=== PATIENT | female | born 1975 | race Caucasian/White ===

== ENCOUNTER → 2016-06-25 | Day surgery (SDC) | payer BC, OTHER ==
[2016-06-22 09:24] VITALS: Ht 167.6 cm; Wt 131.8 kg
[~2016-06-25] VITALS: Ht 167.6 cm; Wt 131.8 kg
[~2016-06-25] MED LIST: ACET-24 PO; AMT50 PO; ASCA500 PO; ASPEC325 PO; ATROPINE SULFATE 0.1 MG/ML 5ML SYR IV PRN; CALC600T9 PO; EpHEDrine SULFATE INJ 50 MG/ML AMP IV PRN; FENTANYL CITRATE INJ 50 MCG/1 ML 2 ML VIAL ONE; FERR325T5 PO; FLM4 PO; FRRG PO; HYDR-4079 PO; LIDOCAINE HCL 2% 2 ML VIAL (20MG/ML) ONE; LISI-788 PO; MAGN400T6 PO; METF750T PO; METO50TA7 PO; MOME200A INH; MORP-157 PO; OMEP20TA PO; POTA20TA16 PO; PROPOFOL IV EMULSION 10 MG/ML 20 ML VIAL IV ONE; ROPI0.25 PO; RXC5 PO; SUMATRIPTAN PO; TRMO2580 TOP; VENL150T33 PO
--- NOTE | 2016-06-25 08:24 | Endo History and Physical ---
History & Physical Date of Service: Jun 25, 2016. Chief Complaint: Anemia Referring Physician: Yamileth PARSONS History of Present Illness Patient referred for evaluation of iron deficiency anemia. No symptoms, no dysphagia, no hematochezia. Past Surgical History Hx Cardiac Surgery: No Hx Internal Defibrillator: No Hx Pacemaker: No Hx Abdominal Surgery: Yes (, BARIATRIC SURGERY) Hx of Implantable Prosthesis: No Hx Post-Op Nausea and Vomiting: No Hx Cancer Surgery: No Hx Thoracic Surgery: No Hx Orthopedic: No Hx Urinary Tract Surgery: No Family History None Social History Smoking Status: Current Every Day Smoker Hx Substance Use: No Hx Alcohol Use: Yes (OCCASIONAL) Allergies Coded Allergies: No Known Allergies (Verified , 06/25/16) Current Medications Reported Home Medications Medications Dose Route/Sig Max Daily Dose Days Date Category Dose Instructions [place] 10MG/325MG (Acetaminophen/Hydrocodone Bitart) Tab 1 Tab PO TID PRN 30 06/25/16 Reported PRN PAIN Vitamin C (Ascorbic Acid) 500 Mg Tab 1 Tab PO QAM 06/22/16 Reported Calcium + D (Calcium Carbonate-Vitamin D) 1 Tab Tab 1 Tab PO BID 06/22/16 Reported Ferrous Sulfate 325 Mg Tab 1 Tab PO BID 06/22/16 Reported Mag-Ox (Magnesium Oxide) 400 Mg Tab 400 Mg PO QAM 06/22/16 Reported Klor-Con (Potassium Chloride) 20 Meq Tabcr 20 Meq PO QAM 06/22/16 Reported Requip (Ropinirole HCl) 0.25 Mg Tab 0.25 Mg PO HS 06/22/16 Reported Elavil (Amitriptyline HCl) 50 Mg Tab 50 Mg PO HS 06/22/16 Reported Dulera 200/5 Mcg (Mometasone Furoate-Formoterol) 1 Aer Aer 1 Puff INH BID 06/22/16 Reported Zestoretic 20MG/25MG (HCTZ/Lisinopril) Tab 1 Tab PO QAM 06/22/16 Reported Toprol-Xl (Metoprolol Succinate) 50 Mg Tabcr 50 Mg PO QAM 06/22/16 Reported Glucophage Er (Metformin Hcl) 750 Mg Tab 750 Mg PO BID 06/22/16 Reported Tamsulosin HCl 0.4 Mg Cap 1 Cap PO QAM 06/22/16 Reported Venlafaxine Hcl Er (Venlafaxine Hcl) 150 Mg Tab 2 Tabs PO QAM 06/22/16 Reported Omeprazole 20 Mg Tab 40 Mg PO QAM 06/22/16 Reported Vital Signs Weight (Kilograms): 131.82 Height (Feet): 5 Height (Inches): 6 Date Time Temp Pulse Resp B/P Pulse Ox O2 Delivery O2 Flow Rate FiO2 06/25/16 08:16 36.9 85 22 165/94 95 Room Air Physical Exam General Appearance: no apparent distress Respiratory/Chest: Auscultation: breath sounds normal Cardiovascular: Heart Auscultation: RRR Abdomen: Inspection & Palpation: soft Assessment and Plan EGD and colonoscopy today, risks are bleeding, infection, perforation, pain, and missed polyps.
--- NOTE | 2016-06-25 09:20 | Discharge Instructions ---
Endoscopy Patient Instructions Date / Procedure(s) Performed Jun 25, 2016. Colonoscopy, EGD Allergy Information Coded Allergies: No Known Allergies (Verified , 06/25/16) Discharge Date / Findings Jun 25, 2016. Hemorrhoids Prior gastric bypass Medication Instructions Stopped Medication(s): Patient was told to stop metformin "and a few others" but she doesn't remember which ones. Reported Home Medications Medications Dose Route/Sig Max Daily Dose Days Date Category Dose Instructions [place] 10MG/325MG (Acetaminophen/Hydrocodone Bitart) Tab 1 Tab PO TID PRN 30 06/25/16 Reported PRN PAIN Vitamin C (Ascorbic Acid) 500 Mg Tab 1 Tab PO QAM 06/22/16 Reported Calcium + D (Calcium Carbonate-Vitamin D) 1 Tab Tab 1 Tab PO BID 06/22/16 Reported Ferrous Sulfate 325 Mg Tab 1 Tab PO BID 06/22/16 Reported Mag-Ox (Magnesium Oxide) 400 Mg Tab 400 Mg PO QAM 06/22/16 Reported Klor-Con (Potassium Chloride) 20 Meq Tabcr 20 Meq PO QAM 06/22/16 Reported Requip (Ropinirole HCl) 0.25 Mg Tab 0.25 Mg PO HS 06/22/16 Reported Elavil (Amitriptyline HCl) 50 Mg Tab 50 Mg PO HS 06/22/16 Reported Dulera 200/5 Mcg (Mometasone Furoate-Formoterol) 1 Aer Aer 1 Puff INH BID 06/22/16 Reported Zestoretic 20MG/25MG (HCTZ/Lisinopril) Tab 1 Tab PO QAM 06/22/16 Reported Toprol-Xl (Metoprolol Succinate) 50 Mg Tabcr 50 Mg PO QAM 06/22/16 Reported Glucophage Er (Metformin Hcl) 750 Mg Tab 750 Mg PO BID 06/22/16 Reported Tamsulosin HCl 0.4 Mg Cap 1 Cap PO QAM 06/22/16 Reported Venlafaxine Hcl Er (Venlafaxine Hcl) 150 Mg Tab 2 Tabs PO QAM 06/22/16 Reported Omeprazole 20 Mg Tab 40 Mg PO QAM 06/22/16 Reported Provider Instructions Activity Restrictions - No exercising or heavy lifting for 24 hours. - Do not drink alcohol the day of the procedure. - Do not drive a car or operate machinery until the day after the procedure. - Do not make any important decisions or sign important papers in 24 hours after the procedure. Following Day: - Return to full activity which may include returning to work/school. Diet Start your diet with liquids and light foods (jello, soup, juice, toast). Then eat your usual diet if not nauseated. Treatment For Common After Affects For mild abdominal pain, bloating, or excessive gas: - Rest - Eat lightly - Lie on right side Follow-Up Information Iron deficiency most likely related to prior gastric bypass -- consider addition of vitamin C to her iron supplement (perhaps IV iron) Consider a CT of the abdomen Anesthesia Information What You Should Know You have had a procedure that required some medicine to reduce anxiety and discomfort. This treatment is called moderate sedation. After receiving the treatment, you may be sleepy, but you will be able to breathe on your own. The effects of the treatment may last for several hours. Follow these instructions along with Activity/Diet recommendations noted above: * Do NOT do anything where dizziness or clumsiness would be dangerous. * Rest quietly at home today, then you can be up and about tomorrow. * Have a responsible person stay with you the rest of today. * You may have had an I.V. today. If so, you may take the dressing off later today. Recommendations Call your doctor if: * Trouble breathing * Continuous vomiting for more than 24 hours * Temperature above 101 degrees * Severe abdominal pain or bloating * Pain not relieved by pain medicine ordered * There is increased drainage or redness from any incision * A large amount of rectal bleeding greater than 2-3 tablespoons. (If you had a polyp/s removed or have hemorrhoids, a small amount of blood - from the rectum is to be expected.) * You have any unanswered questions or concerns. IN THE EVENT OF A SERIOUS EMERGENCY, GO TO THE NEAREST EMERGENCY ROOM Your discharge instructions were prepared by provider Evans Mccloud. Patient Instructions Signature Page Yin Shearer Patient (or Guardian) Signature/Date: I have read and understand the instructions given to me by my caregivers. Caregiver/RN/Doctor Signature/Date: The above-named patient and/or guardian has received patient instructions on this date. + Original Patient Signature Page (only) stays with chart. Please make copy for patient.
--- NOTE | 2016-06-25 09:26 | GI REPORT ---
Procedure Date: 06/25/2016 7:57 AM Procedure: Upper GI endoscopy Indications: Iron deficiency anemia Medicines: Monitored Anesthesia Care Complications: No immediate complications. Estimated blood loss: Minimal. Estimated Blood Loss: Estimated blood loss was minimal. Estimated blood loss was minimal. Procedure: Pre-Anesthesia Assessment: - Prior to the procedure, a History and Physical was performed, and patient medications, allergies and sensitivities were reviewed. The patient's tolerance of previous anesthesia was reviewed. - The risks and benefits of the procedure and the sedation options and risks were discussed with the patient. All questions were answered and informed consent was obtained. - Patient identification and proposed procedure were verified prior to the procedure by the physician, the nurse and the utility engineer. The procedure was verified in the procedure room. - Pre-procedure physical examination revealed no contraindications to sedation. - ASA Grade Assessment: IV - A patient with severe systemic disease that is a constant threat to life. - After reviewing the risks and benefits, the patient was deemed in satisfactory condition to undergo the procedure. - The anesthesia plan was to use monitored anesthesia care (MAC). - Immediately prior to administration of medications, the patient was re-assessed for adequacy to receive sedatives. - The heart rate, respiratory rate, oxygen saturations, blood pressure, adequacy of pulmonary ventilation, and response to care were monitored throughout the procedure. - The physical status of the patient was re-assessed after the procedure. After obtaining informed consent, the endoscope was passed under direct vision. Throughout the procedure, the patient's blood pressure, pulse, and oxygen saturations were monitored continuously. The Scope was introduced through the mouth, and advanced to the jejunum. The upper GI endoscopy was accomplished without difficulty. The patient tolerated the procedure well. Findings: The examined esophagus was normal. Evidence of a gastric bypass was found. A gastric pouch with a small size was found. The staple line appeared intact. The gastrojejunal anastomosis was characterized by healthy appearing mucosa. This was traversed. The dsnlu-ds-iizklfq limb was characterized by healthy appearing mucosa. The dyqihzvy-hk-ysfryka limb was not examined as it could not be reached. Biopsies were taken with a cold forceps for histology. Estimated blood loss was minimal. Impression: - Normal esophagus. - Gastric bypass with a small-sized pouch and intact staple line. Gastrojejunal anastomosis characterized by healthy appearing mucosa. Biopsied. Recommendation: - Perform a colonoscopy today. - Await pathology results. - Iron deficiency most likely related to prior gastric bypass (consider addition of Vitamin C, if ineffective perhaps patient may need IV iron) - Observe patient's clinical course. Evans Mccloud D.O. Evans Mccloud, 06/25/2016 9:25:40 AM This report has been signed electronically. Note Initiated On: 06/25/2016 7:57 AM I attest to the content of the Intraoperative Record and orders documented therein, exceptions below
--- NOTE | 2016-06-25 09:28 | GI REPORT ---
Procedure Date: 06/25/2016 8:52 AM Procedure: Colonoscopy Indications: Iron deficiency anemia Medicines: Monitored Anesthesia Care Complications: No immediate complications. Estimated blood loss: Minimal. Estimated Blood Loss: Estimated blood loss was minimal. Procedure: Pre-Anesthesia Assessment: - Prior to the procedure, a History and Physical was performed, and patient medications, allergies and sensitivities were reviewed. The patient's tolerance of previous anesthesia was reviewed. - The risks and benefits of the procedure and the sedation options and risks were discussed with the patient. All questions were answered and informed consent was obtained. - Patient identification and proposed procedure were verified prior to the procedure by the physician, the nurse and the blanker press operator. The procedure was verified in the procedure room. - Pre-procedure physical examination revealed no contraindications to sedation. - ASA Grade Assessment: IV - A patient with severe systemic disease that is a constant threat to life. - After reviewing the risks and benefits, the patient was deemed in satisfactory condition to undergo the procedure. - The anesthesia plan was to use monitored anesthesia care (MAC). - Immediately prior to administration of medications, the patient was re-assessed for adequacy to receive sedatives. - The heart rate, respiratory rate, oxygen saturations, blood pressure, adequacy of pulmonary ventilation, and response to care were monitored throughout the procedure. - The physical status of the patient was re-assessed after the procedure. After I obtained informed consent, the scope was passed under direct vision. Throughout the procedure, the patient's blood pressure, pulse, and oxygen saturations were monitored continuously. The scope was introduced through the anus and advanced to the cecum, identified by appendiceal orifice and ileocecal valve. The colonoscopy was performed without difficulty. The patient tolerated the procedure well. The quality of the bowel preparation was adequate to identify polyps 6 mm and larger in size. Findings: The perianal and digital rectal examinations were normal. Pertinent negatives include normal sphincter tone. Internal hemorrhoids were found during retroflexion. The hemorrhoids were mild. The exam was otherwise without abnormality. Impression: - Internal hemorrhoids. - The examination was otherwise normal. Recommendation: - Discharge patient to home (ambulatory). - Advance diet as tolerated today. - Repeat colonoscopy for screening purposes at age 49 (patient will need a 2 day bowel preparation). - Return to nurse practitioner as previously scheduled. - Please see EGD report for recomendations. Evans Mccloud D.O. Evans Mccloud, 06/25/2016 9:27:59 AM This report has been signed electronically. Note Initiated On: 06/25/2016 8:52 AM I attest to the content of the Intraoperative Record and orders documented therein, exceptions below
--- NOTE | 2016-06-25 09:31 | Anesthesiology Progress Note ---
Anesthesia Post Op Note Date & Time Jun 25, 2016 at 09:30 Vital Signs Pain Intensity: 0 Vital Signs Past 12 Hours Date Time Temp Pulse Resp B/P Pulse Ox O2 Delivery O2 Flow Rate FiO2 06/25/16 09:13 92 20 138/90 95 Room Air 06/25/16 08:16 36.9 85 22 165/94 95 Room Air Notes Mental Status: alert / awake / arousable, participated in evaluation Pt Amnestic to Procedure: Yes Nausea / Vomiting: adequately controlled Pain: adequately controlled Airway Patency, RR, SpO2: stable & adequate BP & HR: stable & adequate Hydration State: stable & adequate Anesthetic Complications: no major complications apparent
[2016-06-25 09:43] VITALS: BP 124/90; PULSE 84; O2SAT 96
== END | disposition home or self-care (01) ==
LOC: C.GI 07:38
PROVIDERS: ATTEND Internal Medicine Gastroenterology
DX: D50.9 Iron deficiency anemia, unspecified (principal); K64.8 Other hemorrhoids; K31.89 Other diseases of stomach and duodenum; Z98.890 Other specified postprocedural states; F17.210 Nicotine dependence, cigarettes, uncomplicated

== ENCOUNTER 2016-10-22 06:19 | Inpatient (IN) | payer BC ==
[2016-09-28 09:07] VITALS: BMI 45.0
--- NOTE | 2016-09-28 09:39 | PAT Medication Instructions ---
Service Date Sep 28, 2016. Current Home Medication List Amitriptyline Hcl (Elavil), 75 MG PO HS Ascorbic Acid (Vitamin C), 1 TAB PO QAM Calcium Carbonate-Vitamin D (Calcium + D), 2 TAB PO QAM Hydrocodone/Acetaminophen 10MG/325MG ([place] 10MG/325MG), 1 TAB PO TID PRN for Pain Lisinopril/Hctz (Zestoretic 20MG/25MG), 1 TAB PO QAM Magnesium Oxide (Mag-Ox), 400 MG PO QAM Metformin Hcl (Glucophage Er), 750 MG PO BID Metoprolol Succ (Toprol Xl) (Toprol-Xl), 50 MG PO QAM Mometasone Furoate-Formoterol (Dulera 200/5 Mcg), 1 PUFF INH BID Omeprazole (Omeprazole), 40 MG PO QAM Potassium Ext Rel (Klor-Con), 20 MEQ PO QAM Ropinirole (Requip), 0.25 MG PO HS Tamsulosin HCl (Tamsulosin HCl), 1 CAP PO QAM Triamcinolone Acetonide (Topic (Triamcinolone Acet 0.025%), 1 APPLN TOP BID PRN for PRN Venlafaxine Hcl (Venlafaxine Hcl Er), 2 TABS PO QAM [Sumatriptan], 1 TAB PO UD PRN for cherry sorter Instructions For Your Scheduled Surgery - Hold the following medications 24 hours prior to surgery: Triamcinolone Acetonide (Topic (Triamcinolone Acet 0.025%), 1 APPLN TOP BID PRN for PRN - Hold the following medications 48 hours prior to surgery: Metformin Hcl (Glucophage Er), 750 MG PO BID - Hold the following medications the morning of surgery: Tamsulosin HCl (Tamsulosin HCl), 1 CAP PO QAM Potassium Ext Rel (Klor-Con), 20 MEQ PO QAM Magnesium Oxide (Mag-Ox), 400 MG PO QAM Lisinopril/Hctz (Zestoretic 20MG/25MG), 1 TAB PO QAM Ascorbic Acid (Vitamin C), 1 TAB PO QAM Calcium Carbonate-Vitamin D (Calcium + D), 2 TAB PO QAM - Take the following medications the morning of surgery with a sip of water: [Sumatriptan], 1 TAB PO UD PRN for RN (if needed) Venlafaxine Hcl (Venlafaxine Hcl Er), 2 TABS PO QAM Omeprazole (Omeprazole), 40 MG PO QAM Mometasone Furoate-Formoterol (Dulera 200/5 Mcg), 1 PUFF INH BID Metoprolol Succ (Toprol Xl) (Toprol-Xl), 50 MG PO QAM Hydrocodone/Acetaminophen 10MG/325MG ([place] 10MG/325MG), 1 TAB PO TID PRN for Pain (okay to take up to 4 hours prior to surgery if needed) - Hold the following medications as scheduled the night before surgery: Ropinirole (Requip), 0.25 MG PO HS - Take the following medications as scheduled the night before surgery: [Sumatriptan], 1 TAB PO UD PRN for RN (if needed) Mometasone Furoate-Formoterol ([place] 200/5 Mcg), 1 PUFF INH BID Amitriptyline Hcl (Elavil), 75 MG PO HS Hydrocodone/Acetaminophen 10MG/325MG ([place] 10MG/325MG), 1 TAB PO TID PRN for Pain (if needed) If you have any questions please call us at [phone] or [phone] or [phone]
[2016-09-28 10:03] LABS: BASO % 0.3 %; BASO ABS # 0.03 K/uL (0-0.2); COMPLETE YES; EOS % 2.3 %; HEMATOCRIT 42.3 % (37-47); IG% 0.1 %; LYMPH % 29.8 %; LYMPH ABS # 2.67 K/uL (1.2-3.4); MEAN CELL VOLUME 91.6 fL (80-100); MEAN CORPUSCULAR HEMOGLOBIN 31.6 pg (25-34); MEAN CORPUSCULAR HGB CONC 34.5 g/dl (32-36); MEAN PLATELET VOLUME 9.9 fL (7.4-10.4); MONO % 7.3 %; NEUT % 60.2 %; PLATELET COUNT 280 K/uL (130-400); RED BLOOD COUNT 4.62 M/uL (4.2-5.4); WHITE BLOOD COUNT 8.95 K/uL (4.8-10.8)
[2016-09-28 10:14] LABS: INR 0.9 (0.9-1.1); PROTHROMBIN TIME (PATIENT) 10.1 SECONDS (9.0-12.0)
[2016-09-28 10:33] LABS: BUN/CREATININE RATIO 8.3 (10-20); CALCIUM 9.6 mg/dl (8.5-10.1); CREATININE 0.64 mg/dl (0.60-1.20)
[2016-09-28 10:38] LABS: ESTIMATED AVERAGE GLUCOSE 114 mg/dl; HA1C FLAG Normal (Normal)
--- NOTE | 2016-09-28 10:53 | DIAGNOSTIC IMAGING REPORT ---
TWO VIEW CHEST CLINICAL HISTORY: Preoperative examination. FINDINGS: PA and lateral chest radiographs are compared to study dated 01/19/2014. The cardiomediastinal silhouette is unremarkable. The lungs and pleural spaces are clear. There is no pneumothorax. The bony thorax appears intact. Mild degenerative change and hyperkyphosis are noted in the thoracic spine. A bone island is suggested in the left second rib. IMPRESSION: No active disease in the chest. Electronically signed by: Daniele Morales M.D. 09/28/2016 10:52 AM Dictated Date/Time: 09/28/2016 10:51 AM
--- NOTE | 2016-10-16 10:28 | HISTORY & PHYSICAL EXAMINATION ---
DATE OF ADMISSION: 10/22/2016 CHIEF COMPLAINT: Right hip pain. 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 She has about little over 1 year history of increasing right hip pain and discomfort gradually just gotten worse over the past year and particular over the past 6 months. She has resorted to using a cane or walker in order to get by. She has been through extensive conservative treatment including therapy, ultrasound, E-Stim, other modalities as well as oral medicines. She has a very limited walking tolerance. She limps with every step. The more she walks, the more she limps. She describes buttock pain, groin and thigh pain. Would like to proceed with definitive treatment/hip replacement. PAST MEDICAL HISTORY: 1. Hypertension. 2. Irregular heartbeat. 3. Asthma. 4. Anxiety/depression. 5. Diabetes. 6. Anemia. 7. Obesity with a BMI of 45. 8. Low back pain. PAST SURGICAL HISTORY: Includes: 1. . 2. Gastric bypass surgery in 2003. 3. Oral surgery. 4. Breast reduction. ALLERGIES: None. CURRENT MEDICINES: 1. Venlafaxine 150 mg twice a day. 2. Tamsulosin 0.4 mg a day. 3. Metformin ER 750 twice a day. 4. Metoprolol 50 mg once a day for fast heart rate. 5. Lisinopril/hydrochlorothiazide 20/25 twice a day. 6. Dulera 200 mcg/5 mg twice per day. 7. Omeprazole 40 mg a day. 8. Sumatriptan tablets. 9. Amitriptyline 75 mg at bedtime. 10. Ropinirole 0.25 mg a day. 11. Potassium chloride 20 mEq a day. 12. Magnesium oxide 40 mg daily. 13. Calcium with Vitamin D. 14. Vitamin C. 15. Iron infusion. SOCIAL HISTORY: A 41-year-old female who is from [place]. 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 One to 2 drinks per week. One child. FAMILY HISTORY: Significant for diabetes, blood clots, hypertension, cholesterol. REVIEW OF SYSTEMS: Significant for diabetes. Well controlled with hemoglobin A1c 5.6. Denies any chest pain or shortness of breath. No history of DVT or PE. The metoprolol was for elevated heart rate. PHYSICAL EXAMINATION: GENERAL: Reveals a pleasant obese middle-aged female, looks to be in reasonably good health. HEAD, EYES, EARS, NOSE, AND THROAT EXAMINATION: Benign. NECK: Supple. No lymphadenopathy. LUNGS: Clear to auscultation. HEART: Has a regular rate and rhythm. ABDOMEN: Soft, nontender, nondistended. EXTREMITY EXAMINATION: Grossly neurovascularly intact except as follows: Examination of right leg reveals the patient walks with a markedly antalgic gait. Leg lengths clinically appear pretty equal. She has got very stiff and painful hip motion with internal rotation to neutral at best. Negative straight leg raise. She is neurologically intact. X-RAYS: X-rays of the right hip were reviewed. It shows advanced right hip DJD. She has complete loss of her joint space. She has got cystic changes of the femoral head and acetabulum. Not much of a medial osteophyte. X-rays of the lumbar spine reveal fairly good spine. Mild degenerative changes particularly at L5-S1. ASSESSMENT: A 41-year-old white female with a 1-year history of increasing right hip pain and discomfort, unresponsive to conservative care. It is really limiting her activities to the point where she has to use a cane to get around. She would like to have her hip replaced. PLAN: We are going to take her to the operating room and do a right total hip replacement. The risks and benefits of this procedure were explained to the patient including but not limited to DVT, PE, , infection, neurological injury, vascular injury, bleeding problem, pain, limited range of motion, stiffness, failure to relieve her symptoms, incomplete relief of symptoms, need for further surgery in the future, fracture, leg length inequality, nerve palsy, dislocation, etc. The patient understands and desires to proceed. Informed consent was obtained. The patient is hoping to be discharged to home using [facility]. I did talk to her about holding her lisinopril the morning of surgery and make sure she takes her metoprolol. She will hold the metformin 2 days preop.
[~2016-10-22] VITALS: Ht 167.6 cm; Wt 128.0 kg
[2016-10-22] VITALS (16 sets, daily range): BP systolic 95–143; BP diastolic 61–81; PULSE 71–95; TEMP 36.7–37.2; O2SAT 91–97; Ht 167.6 cm; Wt 128.0 kg
[~2016-10-22 06:19] MED LIST changes: -ACET-24 PO; +ACETAMINOPHEN 500 MG TAB PO SCH; -ASPEC325 PO; -ATROPINE SULFATE 0.1 MG/ML 5ML SYR IV PRN; +CEFAZOLIN 3000 MG/65 ML D5W 65 ML IV SCH; -EpHEDrine SULFATE INJ 50 MG/ML AMP IV PRN; +FAMOTIDINE 20 MG TAB PO SCH; -FENTANYL CITRATE INJ 50 MCG/1 ML 2 ML VIAL ONE; -FERR325T5 PO; -FRRG PO; +GABAPENTIN 300 MG CAP PO SCH; +LACTATED RINGER'S 1000ML 1,000 ML IV SCH; +LACTATED RINGER'S 1000ML 500 ML IV SCH; +LACTATED RINGER'S 1000ML IV SCH; -LIDOCAINE HCL 2% 2 ML VIAL (20MG/ML) ONE; +METOCLOPRAMIDE HCL 10 MG TAB PO SCH; -MORP-157 PO; -PROPOFOL IV EMULSION 10 MG/ML 20 ML VIAL IV ONE; -RXC5 PO; +SCOPOLAMINE 1.5 MG TDSY TD SCH; +TRANEXAMIC ACID INJ 1,000 MG in SODIUM CHLORIDE 0.9% 100ML 100 ML IV SCH
[2016-10-22] MEDS ORDERED: BUPIVACAINE 0.5 % 5 MG/1 ML PF 10ML VIAL ONE (06:35)
--- NOTE | 2016-10-22 06:48 | History & Physical Bridge Note ---
H&P Re-Evaluation Bridge Note: I have examined the patient, reviewed the History & Physical and in the interval since the performance of the History & Physical I have noted the following changes of clinical significance: No changes noted
[2016-10-22 07:23] LABS: PREG INTERNAL NEGATIVE QC NEG CLEAR BACKGROUND; PREG INTERNAL POSITIVE QC POS CONTROL LINE
[2016-10-22] MEDS ORDERED: PROPOFOL IV EMULSION 10 MG/ML 20 ML VIAL IV ONE ×2 (07:34→09:46)
[2016-10-22] MEDS ORDERED: MIDAZOLAM HCL 1 MG/ML 2ML VIAL ONE ×2 (07:34→09:39)
[2016-10-22] MEDS ORDERED: MoRPHine SULFATE PF 1 MG/ML 10 ML AMP/VIAL ONE (07:34)
[2016-10-22] MEDS ORDERED: FENTANYL CITRATE INJ 50 MCG/1 ML 2 ML VIAL ONE (07:34)
[2016-10-22] MEDS ORDERED: ATROPINE SULFATE 0.1 MG/ML 5ML SYR IV PRN (08:30)
[2016-10-22] MEDS ORDERED: PROMETHAZINE HCL INJ 6.25 MG in SODIUM CHLORIDE 0.9% 50ML 50 ML IV PRN ×2 (08:30→12:30)
[2016-10-22] MEDS ORDERED: FENTANYL CITRATE INJ 50 MCG/1 ML 2 ML VIAL IV PRN (08:30)
[2016-10-22] MEDS ORDERED: EpHEDrine SULFATE INJ 50 MG/ML AMP IV PRN ×2 (08:30→12:30)
[2016-10-22] MEDS ORDERED: ONDANSETRON INJ 2 MG/ML 2 ML VIAL IV PRN ×2 (08:30→12:30)
[2016-10-22] MEDS ORDERED: BACITRACIN 50000 UNIT VIAL ONE (08:53)
[2016-10-22] MEDS ORDERED: BUPIVACAINE/EPINEPHRINE 0.5% MPF 1:200,000 10 ML VIAL ONE ×3 (08:53→09:26)
[2016-10-22] MEDS ORDERED: ONDANSETRON INJ 2 MG/ML 2 ML VIAL ONE (10:30)
--- NOTE | 2016-10-22 11:34 | [facility] Post Operative Brief Note ---
Immediate Operative Summary Operative Date Oct 22, 2016. Pre-Operative Diagnosis Advanced Right Hip Degenerative Joint Disease Post-Operative Diagnosis Advanced Right Hip Degenerative Joint Disease Procedure(s) Performed Right Total Hip Arthroplasty--Uncemented Surgeon Dr. David Goins Communications Superintendent Surgeon(s) Alon Montiel PA-C Estimated Blood Loss 300ml Findings Right Hip DJD Fluids (cc crystalloids) 1600 cc Specimens A. Right Femoral Head Drains None Anesthesia Spinal Complication(s) None Disposition Recovery Room / PACU
[2016-10-22] MEDS ORDERED: GLUCOSE 40% GEL 15 GM TUBE PO PRN (11:45)
[2016-10-22] MEDS ORDERED: METOCLOPRAMIDE HCL INJ 5 MG/ML 2 ML VIAL IV PRN (11:45)
[2016-10-22] MEDS ORDERED: DiphenhydrAMINE HCL 50 MG/ML VIAL IV PRN ×3 (11:45→12:30)
[2016-10-22] MEDS ORDERED: BISACODYL 10 MG SUPP PR PRN (11:45)
[2016-10-22] MEDS ORDERED: SILVER SULFADIAZINE 1% CR 50 GM JAR EXT PRN (11:45)
[2016-10-22] MEDS ORDERED: DEXTROSE 50% 50 ML SYR IV PRN (11:45)
[2016-10-22] MEDS ORDERED: GLUCOSE 10 TABS/TUBE PO PRN (11:45)
[2016-10-22] MEDS ORDERED: ALUMINUM/MAGNESIUM/SIMETH (MAALOX MAX) 30 ML UDC PO PRN (11:45)
[2016-10-22] MEDS ORDERED: GLUCAGON FOR INJ 1 MG VIAL SQ PRN (11:45)
[2016-10-22] MEDS ORDERED: MAGNESIUM HYDROXIDE SUSP 30 ML UDC PO PRN (11:45)
--- NOTE | 2016-10-22 12:20 | OPERATIVE REPORT ---
DATE OF OPERATION: 10/22/2016 PREOPERATIVE DIAGNOSIS: Right hip degenerative joint disease. POSTOPERATIVE DIAGNOSIS: Same. PROCEDURE PERFORMED: Right uncemented ceramic on highly cross-linked polyethylene total hip arthroplasty. SURGEON: David Goins M.D. CLOTH EXAMINER MACHINE: Alon Montiel PA-C. COMPLICATIONS: None. ESTIMATED BLOOD LOSS: 300 mL. FLUID REPLACEMENT: 1600 mL crystalloid fluid replacement. ANESTHESIA: Spinal. DRAINS: None. SPECIMENS: Right femoral head sent for pathology. OPERATIVE INDICATIONS: The patient is a 41-year-old morbidly obese female with a BMI of 45 status post gastric bypass surgery who has had a several year history of increasing right hip pain and discomfort. She has been through extensive conservative care without adequate relief. Pain has become markedly more debilitating over the past 6 months. She failed conservative treatment and elected to proceed with operative intervention. OPERATIVE FINDINGS: Operative findings revealed a very large soft tissue envelope. She had extensive grade 4 change of the femoral head and acetabulum. She had osteophytes around the acetabulum, particularly anteriorly. Moderate size joint effusion. OPERATIVE IMPLANTS: Operative implants consisted of: 1. Biomet G7 size 50 mm acetabular shell. 2. An apex hole eliminator. 3. A 6.5 mm cancellous acetabular screws, 1 at 35 mm length and 1 at 20 mm in length. 4. A highly cross-linked polyethylene liner with a 50 mm outer diameter, 32 mm inner diameter with a wilder placed inferior and posterior. 5. A DePuy size 15 small stature AML femoral stem. 6. A +5/32 mm ceramic articular ball. OPERATIVE PROCEDURE: The patient taken to the operating room, identified and placed on the operating table in supine position. All contact areas were appropriately padded. IV antibiotics were provided by anesthesia team. A spinal anesthetic had been implemented in the holding area. Doe catheter was placed in sterile fashion. The patient was then placed in the left lateral decubitus position. An axillary roll was placed. [facility] hip positioner was used for positioning. We did spend an extra 10-15 minutes positioning this patient due to her large body habitus. The right hip and leg were then prepped and draped in the usual sterile fashion. Posterolateral approach to the right hip was then performed through a curvilinear incision centered over the greater trochanter. Sharp dissection was carried through the subcutaneous tissue down to the level of the IT band and gluteal fascia. Soft tissue envelope was about 6 inches. The IT band and gluteal fascia were then incised longitudinally in line with skin incision. The underlying greater trochanteric bursa was excised. The piriformis and external rotators were tagged and taken off the posterior aspect of the femur. Great care was taken throughout the procedure to protect the sciatic nerve at all times. Posterior capsulotomy was then performed leaving a large flap for later repair. Hip was internally rotated and dislocated. Femoral neck osteotomy cut was made with the final cut about 8 mm above the lesser trochanter. Femoral head was removed and sent for pathology. The femur was retracted anteriorly. Attention was then drawn to the acetabulum. The acetabular labrum was excised. The pulvinar fat was excised. Sequential reaming of the acetabulum was then performed beginning with a size 43 and progressing up to 49. A 50 mm Biomet G7 acetabular shell was then placed in about 40 degrees of lateral opening and 20 degrees of anteversion. We worked hard to try and get this as flat as possible and appropriately anteverted. It was fixed with two 6.5 cancellous acetabular screws. Some anterior osteophytes removed. Attention was then drawn to the femur. The proximal femur was entered with a cookie cutter followed by canal finder and lateralizing reamer. Sequential reaming of the femur was then performed beginning with a size 10 and progressing up to a 14.5. We got good chatter there at 14.5. We broached beginning with a size 12 small and progressing up to 15 small. We got good fixation proximally. The calcar reamer was used to smoothen off the calcar, but I really did need to get the quite down to the calcar cut. We then trialed the hip and +5/32 mm articular ball provided full stability and full extension and external rotation, flexion to 90 degrees, internal rotation to about [address] a lip inferior and posterior to maximize stability in flexion. Attention was then drawn toward placement of the permanent components. All trial components were removed. An apex hole eliminator was placed. A highly cross-linked polyethylene liner was placed. A 50 x 32 mm highly cross-linked polyethylene liner with a wilder placed inferior and posterior was then placed. A 15 small stature AML femoral stem was placed. Once again, I left it about 1 mm proud of the calcar cut. I then placed a +5/32 mm ceramic articular ball. Hip was located and once again found to be stable. Attention was then drawn to closing. The wound was irrigated with copious amounts of pulsatile lavage solution. I did inject locally with 60 mL of 0.5% Marcaine with epinephrine. The posterior capsule and external rotators were repaired through drill holes in the posterior trochanter with #2 Ti-Cron suture. The IT band and gluteal fascia were then closed with #1 PDS suture in running fashion. The subcutaneous tissues were then closed with 2 layers with the deep layer #2 Vicryl suture in a buried interrupted fashion and subcutaneous tissues with 2-0 Dexon suture in a buried interrupted fashion. The skin was then closed with skin kaykay. Leg was then cleaned and dried and a sterile dressing of Xeroform, 4 x 4's, ABD pad and foam tape was applied. The patient was then transferred to the recovery room in stable condition. The patient tolerated the procedure well with no complications. All needle and sponge counts were correct at the end of the operation. I attest to the content of the Intraoperative Record and any orders documented therein. Any exception s are noted below.
--- NOTE | 2016-10-22 12:22 | DIAGNOSTIC IMAGING REPORT ---
RIGHT PELVIS/UNILATERAL HIP 1 VIEW CLINICAL HISTORY: IN PACU - A/P PELVIS and LATERAL HIP INCLUDING ALL OF IMPLANT Right postoperative evaluation COMPARISON: None. DISCUSSION: Total right hip prosthetic in good position. Good contact between prosthetic and underlying bone. Expected soft tissue postoperative changes. IMPRESSION: Anatomic alignment status post total right hip replacement The above report was generated using voice recognition software. It may contain grammatical, syntax or spelling errors. Electronically signed by: Seymour Villalobos M.D. 10/22/2016 12:21 PM Dictated Date/Time: 10/22/2016 12:20 PM
[2016-10-22] MEDS ORDERED: LACTATED RINGER'S 1000ML 500 ML IV PRN (12:28)
[2016-10-22] MEDS ORDERED: NALOXONE HCL INJ 0.08 MG in SYRINGE 1.8 ML IV PRN (12:28)
[2016-10-22] MEDS ORDERED: NALOXONE HCL INJ 1 MG in SODIUM CHLORIDE 0.9% 1000ML 1,000 ML IV PRN (12:28)
[2016-10-22] MEDS ORDERED: SODIUM CHLORIDE 0.9% 1000ML 1,000 ML IV PRN (12:28)
[2016-10-22] MEDS ORDERED: MoRPHine SULFATE PF 1 MG/ML 10 ML AMP/VIAL EPI PRN (12:30)
[2016-10-22] MEDS ORDERED: MoRPHine SULFATE 2 MG/ML CARP IV PRN (12:30)
[2016-10-22] MEDS ORDERED: NALBUPHINE HCL INJ 10 MG/ML AMP IV PRN (12:30)
[2016-10-22] MEDS ORDERED: LORAZEPAM 1 MG TAB PO PRN (12:30)
[2016-10-22] MEDS ORDERED: NALOXONE HCL 0.4 MG/1 ML VIAL/CARP IV PRN (12:30)
[2016-10-22] MEDS ORDERED: KETOROLAC TROMETHAMINE 30 MG/ML VIAL IV. PRN (12:30)
[2016-10-22] MEDS ORDERED: MEPERIDINE HCL 25 MG/ML CARP IV PRN (12:30)
[2016-10-22] MEDS ORDERED: NO NARCOTICS OR SEDATIVES SCH (12:30)
[2016-10-22] MEDS ORDERED: LORAZEPAM INJ 0.5 MG in SYRINGE 0.75 ML IV PRN (12:30)
--- NOTE | 2016-10-22 12:37 | Anesthesiology Progress Note ---
Anesthesia Post Op Note Date & Time Oct 22, 2016 at 12:37 Vital Signs Pain Intensity: 4 Vital Signs Past 12 Hours Date Time Temp Pulse Resp B/P (MAP) Pulse Ox O2 Delivery O2 Flow Rate FiO2 10/22/16 12:34 70 18 110/65 98 Nasal Cannula 2 10/22/16 12:25 36.5 77 16 118/76 98 Nasal Cannula 2 10/22/16 12:15 74 20 129/69 98 Nasal Cannula 2 10/22/16 12:05 72 14 111/74 98 Nasal Cannula 2 10/22/16 11:55 37 80 15 114/67 99 Nasal Cannula 2 10/22/16 11:45 75 22 115/70 96 Nasal Cannula 2 10/22/16 11:36 37.2 78 14 108/57 100 Nasal Cannula 2 10/22/16 06:49 37.2 86 18 143/81 97 Room Air Notes Mental Status: alert / awake / arousable, participated in evaluation Pt Amnestic to Procedure: Yes Nausea / Vomiting: adequately controlled Pain: adequately controlled Airway Patency, RR, SpO2: stable & adequate BP & HR: stable & adequate Hydration State: stable & adequate Neuraxial Anesthesia: was administered, sensory block is resolving Anesthetic Complications: no major complications apparent
[2016-10-22] MEDS: ACETAMINOPHEN 500 MG TAB PO SCH ×2 (14:23→22:10)
[2016-10-22] MEDS: SODIUM CHLORIDE 0.9% 1000ML 1,000 ML IV SCH ×3 (14:23→23:56)
--- NOTE | 2016-10-22 14:39 | PROGRESS NOTE ---
DATE: 10/22/2016 SUBJECTIVE: A 41-year-old female postop from a right total hip replacement. She is doing pretty well. Denies any pain. Very comfortable. No chest pain or shortness of breath. Not feeling dizzy or nauseated. OBJECTIVE: VITAL SIGNS: Temperature is 37.1. Vital signs are stable. GENERAL: Physical examination reveals a pleasant, middle-aged female. She is sitting up in bed and eating her once. She looks comfortable. LUNGS: Clear to auscultation. HEART: Regular rate and rhythm. ABDOMEN: Soft, nontender, and nondistended. EXTREMITIES: Grossly neurovascularly intact except as follows: Examination of the right hip and leg reveals the leg to be well aligned. Her hip is located. Dressing is clean, dry and intact. She can dorsiflex and plantarflex her foot appropriately. She is neurologically intact. X-RAYS: X-rays of the right hip from the recovery room reviewed. It shows a right uncemented total hip arthroplasty. Components look to be in good position. No signs of problems. ASSESSMENT: A 41-year-old female postop from a right total hip replacement, doing pretty well. Pain is controlled. Hip is located. She is neurologically intact. She is diabetic and has a smoking history. PLAN: 1. DVT prophylaxis including thigh-high TEDs, SCDs, and aspirin twice a day. 2. PT/OT. Weightbearing as tolerated. Right total hip protocol. 3. Pain control, doing well with current pain regimen. 4. IV antibiotics x24 hours. 5. Diabetes. Will use insulin sliding scale coverage. 6. Smoking history. We will provide her with a nicotine patch in the hospital. 7. Disposition: She is planning to be discharged home using [facility] health program once medically stable. KAITY
[2016-10-22] MEDS: KETOROLAC TROMETHAMINE 30 MG/ML VIAL IV. SCH ×2 (15:37→22:10)
[2016-10-22] MEDS: CHECK SCOPOLAMINE PATCH PLACEMENT SCH ×2 (15:37→23:53)
[2016-10-22] MEDS: NICOTINE 14 MG/24 HR TDSY TD SCH (16:57)
[2016-10-22] MEDS: INSULIN HUMAN REGULAR SC SCH ×2 (17:15→21:00)
[2016-10-22] MEDS ORDERED: TRANEXAMIC ACID INJ 1,000 MG in SODIUM CHLORIDE 0.9% 100ML 100 ML IV SCH (17:30)
[2016-10-22] MEDS: FERROUS GLUCONATE 324 MG TAB PO SCH (17:36)
[2016-10-22] MEDS: CEFAZOLIN IV 2,000 MG in DEXTROSE 5% 50ML 50 ML IV SCH (18:09)
[2016-10-22] MEDS: DOCUSATE SODIUM 100 MG CAP PO SCH (21:02)
[2016-10-22] MEDS: SENNA 8.6 MG TAB PO SCH (21:03)
[2016-10-22] MEDS: ROPINIROLE HCL 0.25 MG TAB PO SCH (21:03)
[2016-10-22] MEDS: ASPIRIN 325 MG ECTAB PO SCH (21:04)
[2016-10-22] MEDS: AMITRIPTYLINE HCL 50 MG TAB PO SCH (21:05)
[2016-10-22] MEDS ORDERED: RXC5 PO (22:38)
[2016-10-22] MEDS ORDERED: FRRG PO (22:38)
[2016-10-22] MEDS ORDERED: MORP-157 PO (22:38)
[2016-10-22] MEDS ORDERED: ACET-24 PO (22:38)
[2016-10-22] MEDS ORDERED: ASPEC325 PO (22:38)
--- NOTE | 2016-10-22 22:42 | Discharge Instructions ---
Discharge Instructions Date of Service Oct 22, 2016. Admission Reason for Admission: Right Hip Degenerative Joint Disease Discharge Discharge Diagnosis / Problem: Right Hip Replacement Discharge Goals Goal(s): Decrease discomfort, Improve function, Increase independence, Improve disease control, Therapeutic intervention Activity Recommendations Activity Limitations: per Instructions/Follow-up section (Total Hip Precautions ) Weightbearing Status: Right weightbearing . Instructions / Follow-Up Instructions / Follow-Up ACTIVITY RECOMMENDATIONS: Physical Therapy: * Aggressive physical therapy is not usually needed. You will learn to take care of yourself safely and walk. * Follow the "Hip Precautions Instructions." * In some cases, the social media developer at the hospital will arrange to have a therapist come to your house for the first couple of weeks to help you learn these skills. * You need to practice on your own or with the help of a family member as needed. * When you learn these skills, most of the therapy can be done on your own. Home Exercise: * You were shown a series of exercises in the hospital. Do these exercises three to four times each day including the exercises you were shown in physical therapy. Walking: * Get up and walk several times each day. For the first four weeks, try not to stand or walk for more than one hour at a time. If you do stand or walk for more than one hour, you will not hurt anything, but your leg will likely swell. * As you feel comfortable, you may change from the walker or crutches to a cane and then to independent walking. MEDICATIONS: New Medicine: * You will likely be taking one or more of these medicines: 1. Oxycodone - Take, as directed, when you need it, every four to six hours to control your pain. 2. Iron Sulfate - Take three times each day for the month after surgery to help you replace the blood lost during surgery. 3. Aspirin - Thins your blood to lessen the chance of forming a blood clot. * The most common side effects of pain medicine and iron are nausea and constipation. If nausea or constipation is too much of a problem or if you have any questions about your new medicines or doses, call [facility] at . We will try to help you manage these issues. VERY IMPORTANT TO READ AND REVIEW" Pain: * The immediate post-operative period after hip replacement surgery is often quite painful. * You are given a prescription for pain medicine. You should take it, as directed, when you need it, especially before physical therapy and before going to bed. Pain that interferes with sleep is very common and can last several months. * You will likely need pain medicine for the first two to four weeks. It will not stop all of the pain. The pain will lessen and as you feel better, you may change to milder pain medicine such as Tylenol. * The most common side effects of pain medicine are nausea and constipation, so don't take more than you need. SPECIAL CARE INSTRUCTIONS: TEDs/Elastic Stockings: * The white elastic stockings help limit swelling and prevent blood clots from forming in your legs. The more you wear them, the more they work. * Wear them for six weeks. Prevention of Infection: * Take antibiotics one hour before any dental cleaning, dental work, urological procedure, gastrointestinal procedure or any invasive surgery in order to prevent your new joint from getting infected. * You may get the antibiotics from the doctor performing the procedure or you may call our office at before and we will call in a prescription to the pharmacy of your choice. Things to Watch For: * Drainage from the incision site that occurs more than one week after your surgery. * Severely increased leg pain or swelling. * Increased redness at the incision site. * Fever above 102 degrees Fahrenheit. * Unusual chest pain or shortness of breath. * Unusual pain or burning with urination. Call [facility] at with any of the above problems or if you have any questions about your medicines or recovery. FOLLOW UP VISIT: Make an appointment to see your doctor for approximately two weeks after surgery for a progress check and staple removal by calling the office at . Current Hospital Diet Patient's current hospital diet: Diabetes Type 2 Diet Discharge Diet Recommended Diet: Diabetes Type 2 Diet Procedures Procedures Performed: Right Total Hip Arthroplasty--Uncemented Pending Studies Studies pending at discharge: no Laboratory Results Hemoglobin A1c Test 09/28/16 09:47 Range/Units Estimated Average Glucose 114 mg/dl Hemoglobin A1c 5.6 4.5-5.6 % Medical Emergencies . Who to Call and When: Medical Emergencies: If at any time you feel your situation is an emergency, please call [phone] immediately. . Non-Emergent Contact Non-Emergency issues call your: Surgeon . "Provider Documentation" section prepared by David Goins. . VTE Core Measure Inpt VTE Proph given/why not?: Other Anticoagulation, T.E.D. Hong, SCD's
[2016-10-23] VITALS (13 sets, daily range): BP systolic 92–131; BP diastolic 60–77; PULSE 78–92; TEMP 36.7–37.1; O2SAT 90–99
[2016-10-23] MEDS: CEFAZOLIN IV 2,000 MG in DEXTROSE 5% 50ML 50 ML IV SCH (01:33)
[2016-10-23] MEDS: KETOROLAC TROMETHAMINE 30 MG/ML VIAL IV. SCH ×4 (03:51→20:59)
[2016-10-23] MEDS: ACETAMINOPHEN 500 MG TAB PO SCH ×3 (06:10→21:01)
[2016-10-23 06:25] LABS: BASO % 0.3 %; BASO ABS # 0.03 K/uL (0-0.2); COMPLETE YES; EOS % 2.4 %; HEMATOCRIT 35.7 % (37-47); IG% 0.5 %; LYMPH ABS # 1.63 K/uL (1.2-3.4); MEAN CELL VOLUME 95.2 fL (80-100); MEAN CORPUSCULAR HEMOGLOBIN 31.7 pg (25-34); MEAN CORPUSCULAR HGB CONC 33.3 g/dl (32-36); MEAN PLATELET VOLUME 9.9 fL (7.4-10.4); MONO % 7.5 %; NEUT % 73.3 %; PLATELET COUNT 176 K/uL (130-400); RED BLOOD COUNT 3.75 M/uL (4.2-5.4)
[2016-10-23 07:03] LABS: BUN/CREATININE RATIO 13.7 (10-20); CALCIUM 7.9 mg/dl (8.5-10.1); CREATININE 0.76 mg/dl (0.60-1.20); POTASSIUM 3.7 mmol/L (3.5-5.1)
[2016-10-23] MEDS: SODIUM CHLORIDE 0.9% 1000ML 1,000 ML IV SCH (07:12)
[2016-10-23] MEDS: CHECK SCOPOLAMINE PATCH PLACEMENT SCH ×3 (07:15→21:37)
[2016-10-23] MEDS: INSULIN HUMAN REGULAR SC SCH ×4 (08:00→21:00)
[2016-10-23] MEDS: POTASSIUM CHLORIDE 20 MEQ TABCR PO SCH (08:26)
[2016-10-23] MEDS: MAGNESIUM OXIDE 400 MG TAB PO SCH (08:26)
[2016-10-23] MEDS: DOCUSATE SODIUM 100 MG CAP PO SCH ×2 (08:26→21:00)
[2016-10-23] MEDS: ASCORBIC ACID 500 MG TAB PO SCH (08:27)
[2016-10-23] MEDS: FERROUS GLUCONATE 324 MG TAB PO SCH ×3 (08:27→18:06)
[2016-10-23] MEDS: METOPROLOL SUCC 50MG EXT REL TAB PO SCH (08:27)
[2016-10-23] MEDS: NICOTINE 14 MG/24 HR TDSY TD SCH (08:27)
[2016-10-23] MEDS: MULTIVITAMIN TAB PO SCH (08:28)
[2016-10-23] MEDS: TAMSULOSIN HCL 0.4 MG CAP PO SCH (08:28)
[2016-10-23] MEDS: VENLAFAXINE HCL XR 150 MG CAPXR PO SCH (08:28)
[2016-10-23] MEDS: ASPIRIN 325 MG ECTAB PO SCH ×2 (08:28→21:01)
[2016-10-23] MEDS: PANTOprazole SOD 40 MG TAB PO SCH (08:29)
[2016-10-23] MEDS: CALCIUM 600MG + VIT D 400 IU TAB PO SCH (08:29)
[2016-10-23] MEDS: LISINOPRIL/HCTZ 20/25MG TAB PO SCH (08:29)
[2016-10-23] MEDS: TAPENTADOL ER 50 MG TABCR PO SCH ×2 (08:38→20:59)
--- NOTE | 2016-10-23 08:40 | PROGRESS NOTE ---
DATE: 10/23/2016 SUBJECTIVE: A 41-year-old female, postop day 1 from right total hip replacement. She is doing well. Pain is controlled. Denies any chest pain, no shortness of breath. Not feeling dizzy or lightheaded. OBJECTIVE: VITAL SIGNS: Temperature 36.7. Vital signs stable. PHYSICAL EXAMINATION: GENERAL: Reveals a healthy, pleasant middle-aged female. She is sitting up in bed and looks pretty comfortable. EXTREMITIES: Examination of the right hip reveals the dressing to be clean, dry and intact. Hip is located. She can dorsiflex and plantarflex her foot appropriately. She is neurologically intact. LABORATORY DATA: Hemoglobin 11.9, hematocrit 35.7. Electrolytes are stable. ASSESSMENT: A 41-year-old female, postop day 1 from a right total hip replacement, doing pretty well. Pain is controlled. The hip is located. She is neurologically intact. PLAN: 1. DVT prophylaxis, including thigh-high TEDs, SCDs and aspirin twice a day. 2. PT/OT. Weightbearing as tolerated. Right total hip protocol. 3. Pain control, doing well with current pain regimen. 4. Disposition: She is planning to be discharged to home with [facility] once adequately recovered. KAITY
[2016-10-23] MEDS ORDERED: ONDANSETRON INJ 2 MG/ML 2 ML VIAL IV PRN (09:00)
[2016-10-23] MEDS ORDERED: ZOLPIDEM TARTRATE 5 MG TAB PO PRN (09:00)
[2016-10-23] MEDS ORDERED: DC INTRASPINAL MORPHINE ONE (09:00)
[2016-10-23] MEDS ORDERED: NON-FORMULARY MEDICATION (Omeprazole 40 MG) PO SCH (09:00)
[2016-10-23] MEDS: OXYCODONE HCL IR 5 MG TAB (IMMEDIATE RELEASE) PO PRN ×3 (10:26→18:50)
[2016-10-23] MEDS: SENNA 8.6 MG TAB PO SCH (20:59)
[2016-10-23] MEDS: ROPINIROLE HCL 0.25 MG TAB PO SCH (21:01)
[2016-10-23] MEDS: AMITRIPTYLINE HCL 50 MG TAB PO SCH (21:01)
[2016-10-23] MEDS: MoRPHine SULFATE 2 MG/ML CARP IV PRN (21:06)
[2016-10-24] MEDS: OXYCODONE HCL IR 5 MG TAB (IMMEDIATE RELEASE) PO PRN ×3 (03:04→11:15)
[2016-10-24] MEDS: KETOROLAC TROMETHAMINE 30 MG/ML VIAL IV. SCH ×2 (03:53→10:42)
[2016-10-24] MEDS: ACETAMINOPHEN 500 MG TAB PO SCH (05:29)
[2016-10-24 07:25] VITALS: BP 116/69; PULSE 75; TEMP 36.8; O2SAT 97
[2016-10-24] MEDS: INSULIN HUMAN REGULAR SC SCH (08:00)
--- NOTE | 2016-10-24 08:35 | PROGRESS NOTE ---
DATE: 10/24/2016 CHIEF COMPLAINT: Status post right total hip arthroplasty postop day #2. PROGRESS: Yin was seen and examined at bedside today. Overall, she is doing very well. She has very little pain in the hip. She is working well with physical therapy, has no complaints. PHYSICAL EXAMINATION: RIGHT HIP: The incision is clean and dry. The dressing has been changed. Her right lower extremity is neurovascularly intact. She has active dorsiflexion and plantarflexion of her right ankle. IMPRESSION: Status post right total hip arthroplasty postop day #2. PLAN: At this point, she is doing very well. She is working well with physical therapy. Her pain is controlled. She is on aspirin 325 mg twice a day for DVT prophylaxis. She will be seen by physical therapy later this morning and likely discharged to home with home health services.
[2016-10-24] MEDS: DOCUSATE SODIUM 100 MG CAP PO SCH (08:36)
[2016-10-24] MEDS: FERROUS GLUCONATE 324 MG TAB PO SCH (08:36)
[2016-10-24] MEDS: ASPIRIN 325 MG ECTAB PO SCH (08:36)
[2016-10-24] MEDS: TAPENTADOL ER 50 MG TABCR PO SCH (08:37)
[2016-10-24] MEDS: CALCIUM 600MG + VIT D 400 IU TAB PO SCH (08:37)
[2016-10-24] MEDS: LISINOPRIL/HCTZ 20/25MG TAB PO SCH (08:37)
[2016-10-24] MEDS: VENLAFAXINE HCL XR 150 MG CAPXR PO SCH (08:38)
[2016-10-24] MEDS: MAGNESIUM OXIDE 400 MG TAB PO SCH (08:38)
[2016-10-24] MEDS: MULTIVITAMIN TAB PO SCH (08:38)
[2016-10-24] MEDS: TAMSULOSIN HCL 0.4 MG CAP PO SCH (08:38)
[2016-10-24] MEDS: ASCORBIC ACID 500 MG TAB PO SCH (08:38)
[2016-10-24] MEDS: METOPROLOL SUCC 50MG EXT REL TAB PO SCH (08:38)
[2016-10-24] MEDS: PANTOprazole SOD 40 MG TAB PO SCH (08:39)
[2016-10-24] MEDS: NICOTINE 14 MG/24 HR TDSY TD SCH (08:39)
[2016-10-24] MEDS: POTASSIUM CHLORIDE 20 MEQ TABCR PO SCH (08:39)
[2016-10-24] MEDS: MoRPHine SULFATE 2 MG/ML CARP IV PRN (10:57)
--- NOTE | 2016-11-01 16:20 | DISCHARGE SUMMARY ---
ADMITTING PHYSICIAN: Dr. Goins. ADMITTING DIAGNOSIS: Advanced right hip degenerative joint disease. PROCEDURE PERFORMED: Total right hip arthroplasty, uncemented. SECONDARY DIAGNOSIS: None. CONSULTS: None. History and physical examination is well documented in the patient's chart. HOSPITAL COURSE: The patient was admitted on 10/22/2016 and underwent a total right hip arthroplasty. She tolerated the procedure well. She was then transferred to the PACU postoperatively and later to the orthopedic floor for further care. She was given Ancef as a prophylaxis antibiotic, PEDRO LUIS hose stockings, SCDs and aspirin for DVT prophylaxis. Hemoglobin, hematocrit and vital signs were monitored during the hospital stay. She did not require any blood transfusions. There were no complications. By postop day #2, she was tolerating a general diet, pain was well controlled with oral pain medications and anti-inflammatories. She was participating in physical therapy with no signs of any deep vein thrombosis. On postop day #2, she was discharged home and set up with home health services. She was given printed discharge instructions including new prescriptions for aspirin 325 b.i.d. for DVT prophylaxis, iron supplement, and Percocet. She is to continue home medicines as well as continue with physical therapy. Weightbearing as tolerated, PEDRO LUIS stockings and total hip precautions to continue as well. She is to follow up in the office approximately 10-12 days postoperatively for suture removal and evaluation. She can come in sooner if there are any problems or concerns. KAITY
== END 2016-10-24 11:26 | disposition home health service (06) | DRG 470 ==
LOC: C.ACU 06:19 → C.3E 06:30 → ENRESERV 12:05
PROVIDERS: ADMIT Orthopaedic Surgery Sports Medicine; ATTEND Orthopaedic Surgery Sports Medicine
PROC: 0SR904A Replacement of Right Hip Joint with Ceramic on Polyethylene Synthetic Substitute, Uncemented, Open Approach (ICD-10-PCS; principal; 2016-10-22 08:45)
DX: M16.11 Unilateral primary osteoarthritis, right hip (principal); Z68.42 Body mass index [BMI] 45.0-49.9, adult; E66.01 Morbid (severe) obesity due to excess calories; I49.9 Cardiac arrhythmia, unspecified; I11.9 Hypertensive heart disease without heart failure; E11.9 Type 2 diabetes mellitus without complications; J45.909 Unspecified asthma, uncomplicated; D64.9 Anemia, unspecified; Z79.899 Other long term (current) drug therapy; Z79.84 Long term (current) use of oral hypoglycemic drugs; Z98.84 Bariatric surgery status; Z83.3 Family history of diabetes mellitus; Z82.49 Family history of ischemic heart disease and other diseases of the circulatory system; Z83.49 Family history of other endocrine, nutritional and metabolic diseases